=== PATIENT | female | born 1990 | race Caucasian/White ===

== ENCOUNTER 2019-03-21 04:11 | Inpatient (IN) | payer BC ==
[2019-03-21] MEDS: Lactated Ringer's 1,000 ML IV SCH ×2 (04:50→05:58)
[2019-03-21 04:53] VITALS: BMI 35.3
[2019-03-21] MEDS ORDERED: hydrALAZINE 20 MG/ML VIAL SLOW IVP PRN (04:53)
[2019-03-21] MEDS ORDERED: HYDROcodone/Acetaminophen 5/325 mg Tablet PO PRN ×2 (04:53)
[2019-03-21] MEDS ORDERED: Methylergonovine 0.2 MG/ML VIAL IM PRN (04:53)
[2019-03-21] MEDS ORDERED: NS / Oxytocin 40 units/1000ml 1,000 ML IV PRN (04:53)
[2019-03-21] MEDS ORDERED: Ibuprofen 800 MG TAB PO PRN (04:53)
[2019-03-21] MEDS ORDERED: Promethazine HCl 25 MG/ML VIAL IM PRN ×3 (04:53→22:15)
[2019-03-21] MEDS ORDERED: Misoprostol 200 MCG TAB PR PRN (04:53)
[2019-03-21] MEDS ORDERED: Lidocaine 1% (PF) 30 ML VIAL SC PRN (04:53)
[2019-03-21] MEDS ORDERED: Ondansetron PF 4 MG/2 ML Vial IVP PRN ×4 (04:53→22:15)
[2019-03-21] MEDS ORDERED: NS w/ Oxytocin 10 units 500 ML IV SCH (05:00)
[2019-03-21 05:06] LABS: Hemoglobin 13.1 g/dL (12.0-16.0); Mean Corpuscular HGB CONC 32.8 g/dL (32.0-36.0); Mean Corpuscular Hemoglobin 30.3 pg (27.0-31.0); Mean Corpuscular Volume 92.3 fL (78.0-98.0); Mean Platelet Volume 7.5 fL (7.4-10.4); Platelet Count 184 thou/uL (130-400); RBC Distribution Width 12.6 % (11.5-14.5); Red Blood Cell (RBC) Count 4.32 mill/uL (4.20-5.40); White Blood Cell (WBC) Count 14.5 thou/uL (4.8-10.8)
[2019-03-21] MEDS ORDERED: Fentanyl 4 mcg/Bup 0.1% Cadd 100 ML ONE ×2 (05:26→17:30)
[2019-03-21 05:47] LABS: HBSAg Index 0.16 S/CO (0-0.99); Hep B Surf Ag Non-Reactive S/CO (NonReactive); Syphilis Antibody Nonreactive (Nonreactive); Syphilis Antibody Index 0.09 S/CO (<1.00 Non-Reactive)
[2019-03-21] MEDS ORDERED: Lactated Ringer's 500 ML IV PRN (06:08)
[2019-03-21] MEDS ORDERED: Acetaminophen 325 MG TAB PO PRN (06:08)
[2019-03-21] MEDS ORDERED: ePHEDrine/0.9% NaCl/PF SYRINGE 50 mg/10 ml SLOW IVP PRN (06:08)
[2019-03-21] MEDS ORDERED: Naloxone HCl 0.4 mg/ml Vial IVP PRN ×4 (06:08→22:15)
[2019-03-21] MEDS ORDERED: diphenhydrAMINE 50 MG/ML VIAL IVP PRN ×2 (06:08→22:15)
[2019-03-21] MEDS ORDERED: Communication Order-Pharmacy FS SCH ×2 (06:15→22:15)
[2019-03-21] MEDS: Fentanyl 4 mcg/Bupivacaine 0.1% Cassette 100 ML EPIDURAL SCH ×3 (06:57→17:48)
[2019-03-21] MEDS ORDERED: Bupivacaine PF 0.5% 30 ML VIAL ONE (08:53)
[2019-03-21] MEDS ORDERED: Bupivacaine 0.25% HCL 30 ML VIAL ONE ×2 (08:53→12:52)
--- NOTE | 2019-03-21 19:04 | PDOC.LDHP ---
Labor and Delivery H&P Chief complaint: contractions HPI: she was scheduled for an IOL today. At 0245 she woke up with contractions that got very close together and fast. Current gestational age (weeks): 41 (3 days) Dating criteria: last menstrual period Grav: 1 Para: 0 Abnormal US findings: No Current medications: pre-carson vitamins, other (Valtrex 1 gm PO QD) Allergies/Adverse Reactions: Allergies Allergy/AdvReac Type Severity Reaction Status Date / Time No Known Allergies Allergy Verified 03/21/19 04:44 Social history: none - Physical Exam General: resting Lungs: nonlabored breathing Abdomen: gravid Extremeties: trace edema FHT: category 1 - Vaginal Exam Effacement: 100% Station: -1 - OB Labs Antibody Screen: negative HIV: negative RPR: negative HEPSAg: negative 1 hour GCT: negative GBS: negative Urine drug screen: negative Rubella: immune - Assessment L&D Assessment: term patient in labor - Plan Plan: admit to L&D, informed consent obtained, anesthesia consult for pain management
--- NOTE | 2019-03-21 19:07 | PDOC.LDPN ---
Labor & Delivery Progress Note - Subjective Subjective: comfortable ( occasioanl discomfort is she lays on the left side.) - Objective Vital signs reviewed and normal: yes General: resting, breathing through contractions Uterine fundus: non tender Dilation: 8 Effacement: 100% Station: -1 FHT: category 1 Quinn contractions every: 2 AROM: clear fluid IUPC placed: yes - Assessment (1) Primigravida Code(s): Z34.00 - ENCNTR FOR SUPRVSN OF NORMAL FIRST , UNSP TRIMESTER Current Visit: Yes Status: Acute (2) 41 weeks gestation of Code(s): Z3A.41 - 41 WEEKS GESTATION OF Current Visit: Yes Status : Acute (3) Genital herpes Code(s): A60.00 - HERPESVIRAL INFECTION OF UROGENITAL SYSTEM, UNSPECIFIED Current Visit: Yes Status: Acute Qualifiers: Herpes simplex infection site: perianal skin Qualified Code(s): A60.1 - Herpesviral infection of perianal skin and rectum Plan: pitocin for augmentation
[2019-03-21] MEDS ORDERED: PHENYLEPHRINE-NS 100 MCG/ML 10 ML SYRINGE ONE (21:29)
[2019-03-21] MEDS ORDERED: Ondansetron PF 4 MG/2 ML Vial ONE (21:29)
[2019-03-21] MEDS ORDERED: Oxytocin 10 UNITS/ML VIAL ONE (21:29)
[2019-03-21] MEDS ORDERED: ePHEDrine/0.9% NaCl/PF SYRINGE 50 mg/10 ml ONE (21:29)
[2019-03-21] MEDS ORDERED: Ketorolac Tromethamine 30 MG/ML VIAL ONE (21:30)
[2019-03-21] MEDS ORDERED: Dexamethasone 4 mg/ml Vial ONE (22:00)
[2019-03-21] MEDS ORDERED: Methylergonovine 0.2 MG/ML VIAL ONE (22:02)
[2019-03-21] MEDS ORDERED: MORPHINE 5 MG/10 ML PF VIAL ONE (22:05)
[2019-03-21] MEDS ORDERED: Midazolam HCl 2 mg/2 ml Vial ONE (22:05)
[2019-03-21] MEDS ORDERED: PROPOFOL 20 ML ONE (22:09)
[2019-03-21] MEDS ORDERED: Promethazine HCl 25 MG SUPP PR PRN (22:15)
[2019-03-21] MEDS ORDERED: HYDROmorphone 2 MG/ML VIAL SLOW IVP PRN (22:15)
[2019-03-21] MEDS ORDERED: Ketorolac Tromethamine 30 MG/ML VIAL IVP SCH (22:15)
[2019-03-21] MEDS ORDERED: L&D-Morphine 4 MG/ML VIAL SLOW IVP PRN (22:15)
[2019-03-21] MEDS ORDERED: Meperidine HCl/PF 25 MG/ML VIAL SLOW IVP PRN (22:15)
[2019-03-21] MEDS ORDERED: Naloxone HCl 0.4 mg/ml Vial IV PRN (22:15)
[2019-03-21] MEDS ORDERED: Ketorolac Tromethamine 30 MG/ML VIAL IVP PRN (22:15)
[2019-03-21] MEDS ORDERED: Ondansetron HCl/PF 4 MG/2 ML Vial IVP PRN (22:15)
--- NOTE | 2019-03-21 23:18 | OP ---
DATE OF PROCEDURE: 03/21/2019 PREOPERATIVE DIAGNOSES: 1. Term intrauterine in labor. 2. Failure to progress. POSTOPERATIVE DIAGNOSES: 1. Term intrauterine in labor. 2. Failure to progress. 3. Persistent occiput posterior. SURGEON: Ben Dunaway MD PRE FABRICATOR: Faith Chavez CNM PROCEDURE PERFORMED: Primary low segment transverse section via Pfannenstiel incision. FINDINGS: 1. Viable male , weight 3897 grams, Apgars 9 and 9, found in the occiput posterior position. 2. Normal uterus, tubes, and ovaries bilaterally. COMPLICATIONS: Atony treated with Methergine IM 0.2 mg, as well as Pitocin drip. ESTIMATED BLOOD LOSS: 800 mL, QBL pending. COMPLICATIONS: None. PROPHYLAXIS: Ancef 1 g prior to incision. BRIEF PATIENT DESCRIPTION: Ms. Chavez is a 28-year-old primigravida, who is a patient of Faith Chavez and she has labor through the day with slow progress. She is not completely dilated and due to poor progress at this point, she is requesting a primary section. The risks of the procedure including anesthesia, bleeding, infection, as well as damage to adjacent organs requiring repair, removal or transfusion were discussed with her in detail and she wishes to proceed. TECHNIQUE IN DETAIL: After good epidural anesthesia was achieved, the patient was prepped and draped in usual sterile fashion in the supine position with leftward tilt. A transverse incision was made 2 fingerbreadths above the symphysis pubis and the incision was carried down into the abdominal cavity. A bladder flap was created in the peritoneum and a transverse incision was made over the lower uterine segment. Baby was delivered from the occiput posterior presentation. The nasopharynx was bulb suctioned and the remainder of the baby was then delivered. The cord was clamped and cut, and the baby was taken to the warmer with pediatric staff attending. Cord blood was then obtained and the placenta was manually removed. The inside of the uterus was curetted with a dry lap to remove all remaining placental fragments. The uterus was boggy and at this point, Pitocin drip was started and 0.2 Methergine was ordered to be given intramuscular. She did have reasonable response to these measures. The uterus was closed using a running locking suture of Monocryl. Interrupted sutures of chromic were placed for complete hemostasis. The uterus was replaced in the abdominal cavity and the pelvic gutters were cleared of all clots and debris. The uterine incision was again reviewed and was noted to be hemostatic. The peritoneum was closed in a running suture using plain gut suture. The rectus muscles were made dry using Bovie coagulation technique. The fascia was closed using a running suture of PDS. The subcutaneous tissue was thoroughly irrigated and made dry using Bovie coagulation technique. The subcutaneous tissue was closed using interrupted plain gut suture. The skin was closed with metal steph. Sponge, lap, and needle counts were correct. The patient tolerated the procedure well and was taken to the recovery room in good condition. Job ID: [id number] [facility]
[2019-03-22] MEDS ORDERED: Ondansetron PF 4 MG/2 ML Vial IVP PRN (00:27)
[2019-03-22] MEDS ORDERED: hydrALAZINE 20 MG/ML VIAL SLOW IVP PRN (00:27)
[2019-03-22] MEDS ORDERED: diphenhydrAMINE 25 MG CAP PO PRN (00:27)
[2019-03-22] MEDS ORDERED: Adacel (T-DAP) 0.5 ML SYRINGE IM ONE (00:27)
[2019-03-22] MEDS ORDERED: NS / Oxytocin 40 units/1000ml 1,000 ML IV SCH (00:27)
[2019-03-22] MEDS ORDERED: HYDROcodone/Acetaminophen 5/325 mg Tablet PO PRN (00:27)
[2019-03-22] MEDS: Lactated Ringer's 1,000 ML IV SCH ×4 (02:33→13:50)
[2019-03-22] MEDS: Misoprostol 200 MCG TAB PO SCH ×3 (02:43→16:47)
[2019-03-22 06:15] LABS: Hemoglobin 9.5 g/dL (12.0-16.0); Mean Corpuscular HGB CONC 34.3 g/dL (32.0-36.0); Mean Corpuscular Hemoglobin 32.1 pg (27.0-31.0); Mean Corpuscular Volume 93.8 fL (78.0-98.0); Platelet Count 177 thou/uL (130-400); RBC Distribution Width 12.4 % (11.5-14.5); Red Blood Cell (RBC) Count 2.95 mill/uL (4.20-5.40)
[2019-03-22] MEDS: Ibuprofen 800 MG TAB PO SCH ×3 (06:25→22:24)
--- NOTE | 2019-03-22 07:06 | PDOC.PP ---
Post Progress Note Post Day #: POD1 Subjective: Resting, no complaints. PO intake tolerated: yes Flatus: no Ambulation: no Vital Signs (12 hours) Temp Pulse Resp BP Pulse Ox 03/22/19 04:37 98.4 F 112 H 18 120/62 03/22/19 02:30 98.4 F 102 H 18 112/57 L 96 03/22/19 01:05 98.6 F 95 18 110/57 L 96 Weight Weight 93.44 kg - Physical Examination General: NAD Respiratory: non-labored breathing Abdominal: no distention, appropriately TTP Extremities: negative homans (B) Neurological: no gross focal deficits Psychiatric: normal affect Result Diagrams: 03/22/19 05:46 Additional Labs: Post Labs Blood Type O POSITIVE 03/21/19 05:31 Hep Bs Antigen Non-Reactive S/CO (NonReactive) 03/21/19 04:55 - Assessment/Plan Stable postop. Clear liquids and advance. HILARIO albarran today. Routine postop care.
[2019-03-22] MEDS: Prenatal Vitamin 1 TAB PO SCH (12:30)
[2019-03-22] MEDS: Docusate Calcium (SURFAK) 240 MG CAP PO SCH ×2 (12:30→22:24)
[2019-03-22] MEDS: Ferrous Sulfate 325 MG TAB PO SCH ×2 (12:30→23:58)
[2019-03-22] MEDS: HYDROcodone/Acetaminophen 5/325 mg Tablet PO PRN ×2 (14:48→19:40)
[2019-03-22] MEDS: Simethicone Chewable 80 MG TAB PO PRN (22:24)
[2019-03-23] MEDS: HYDROcodone/Acetaminophen 5/325 mg Tablet PO PRN ×4 (00:30→13:54)
[2019-03-23] MEDS: Lactated Ringer's 1,000 ML IV SCH (03:35)
[2019-03-23] MEDS: Ibuprofen 800 MG TAB PO SCH ×2 (05:29→13:47)
[2019-03-23] MEDS: Simethicone Chewable 80 MG TAB PO PRN ×3 (05:29→13:47)
[2019-03-23] MEDS: Ferrous Sulfate 325 MG TAB PO SCH (09:08)
[2019-03-23] MEDS: Prenatal Vitamin 1 TAB PO SCH (09:08)
[2019-03-23] MEDS: Docusate Calcium (SURFAK) 240 MG CAP PO SCH (09:08)
[2019-03-23 11:40] VITALS: BP 104/59; TEMP 98.1
--- NOTE | 2019-03-23 19:15 | DIS ---
DATE OF ADMISSION: 03/21/2019 DATE OF DISCHARGE: 03/23/2019 ADMITTING DIAGNOSES: 1. Intrauterine at 41 weeks and 3 days. 2. Induction of labor. DISCHARGE DIAGNOSES: 1. Intrauterine at 41 weeks and 3 days. 2. Induction of labor. 3. Failure to progress, persistent occiput posterior, primary lower transverse section. PROCEDURE: Primary lower transverse section. CONSULTATIONS: Ob-Metal Bending Machine Operator. HOSPITAL COURSE: The patient is a 28-year-old female who is under the care of Ms. Faith Chavez for induction of labor at 41 weeks plus gestation ending in failure to progress requiring a primary lower transverse section for delivery, which was performed by Dr. Edson Dunaway. For complete details, please refer to the operative note. Her postoperative course has been uncomplicated. She reports that she is tolerating p.o., voiding on her own, having decreased lochia and good pain control. She is now postop day #2 and has an interest in discharging home if possible. PHYSICAL EXAMINATION: VITAL SIGNS: Blood pressure is 98/50, temperature 98.2, pulse of 104, respiratory rate of 18. GENERAL: She appears to be in no acute distress. She is alert, oriented, cooperative, and pleasant to interact. HEENT: Head is normocephalic, atraumatic. ABDOMEN: Fundus is firm. Incision is clean, dry, and intact with steph. LABORATORY DATA: Postoperative hemoglobin is 9.5, hematocrit 27.6, and platelets of 177,000. DISCHARGE INSTRUCTIONS: The patient is being discharged to home with tramadol and ibuprofen for pain control. She has instructions to seek medical attention if she experiences pain, increasing bleeding, discharge, redness or drainage from the incision site. She has been counseled to follow up with Ms. Cuevas next Tuesday or Tuesday for staple removal. Job ID: [id number]
== END 2019-03-23 14:10 | disposition home or self-care (01) | DRG 787 ==
LOC: L&D 04:11 → 3SW 03-22 01:06
PROVIDERS: ADMIT Student in an Organized Health Care Education/Training Program; ATTEND Student in an Organized Health Care Education/Training Program
PROC: 10D00Z1 Extraction of Products of Conception, Low, Open Approach (ICD-10-PCS; principal; 2019-03-21)
PROC: 10H07YZ Insertion of Other Device into Products of Conception, Via Natural or Artificial Opening (ICD-10-PCS; 2019-03-21)
PROC: 10907ZC Drainage of Amniotic Fluid, Therapeutic from Products of Conception, Via Natural or Artificial Opening (ICD-10-PCS; 2019-03-21)
DX: O62.0 Primary inadequate contractions (principal); O98.32 Other infections with a predominantly sexual mode of transmission complicating childbirth; Z37.0 Single live birth; Z3A.41 41 weeks gestation of pregnancy; A60.00 Herpesviral infection of urogenital system, unspecified; O64.0XX0 Obstructed labor due to incomplete rotation of fetal head, not applicable or unspecified; O75.89 Other specified complications of labor and delivery; Z79.899 Other long term (current) drug therapy
CPT/HCPCS: 36415; 51702; 85027; 86780; 86850; 86900; 86901; 87340; J0690; J1100; J1885; J2210; J2250; J2274; J2405; J2590; J2704; Q0163; S0020